=== PATIENT | female | born 1985 ===

== ENCOUNTER 2017-08-15 14:21 | Inpatient (IN) | payer OTHER ==
[~2017-08-15] VITALS: Ht 149.9 cm; Wt 88.0 kg
[2017-08-20] MEDS ORDERED: PRENATAL TABLE1 EAC1 PO (08:06)
== END 2017-08-23 11:43 | disposition home or self-care (01) | DRG 766 ==
LOC: O/R 08-20 06:40 → SURG-SUITE 08-20 06:40 → LDR 08-20 08:30 → SURG-SUITE 08-20 13:36 → LDR 08-20 14:20 → SURG-SUITE 08-23 11:43
PROVIDERS: Obstetrics & Gynecology
PROC: 0UL70ZZ Occlusion of Bilateral Fallopian Tubes, Open Approach (ICD-10-PCS; 2017-08-20)
PROC: 4A1HXCZ Monitoring of Products of Conception, Cardiac Rate, External Approach (ICD-10-PCS; 2017-08-20)
PROC: 10D00Z1 Extraction of Products of Conception, Low, Open Approach (ICD-10-PCS; principal; 2017-08-20 08:30)
DX: O34.211 Maternal care for low transverse scar from previous cesarean delivery (principal); Z3A.39 39 weeks gestation of pregnancy; Z37.0 Single live birth; Z30.2 Encounter for sterilization